=== PATIENT | male | born 1950 | race Caucasian/White ===

== ENCOUNTER → 2018-07-07 | Outpatient (CLI) | payer MEDICARE ==
[~2018-07-07] MED LIST: ALBU50IV IV; ASPI-715 PO; CALC500T6 PO; CHOL10005 PO; GLUC1TAB13 PO; IBUP800T37 PO; LIS10 PO; LISINOPRI BU; LOR5 PO; MULT-1335 PO
--- NOTE | 2018-07-07 19:07 | RADIOLOGY IMAGING REPORT ---
FACILITY: [facility] PATIENT NAME: Leigh Blanton : 1950 MR: [id number] V: [id number] EXAM DATE: ORDERING PHYSICIAN: JAIME MOORE TECHNOLOGIST: Location: [facility] [place] Patient: Leigh Blanton : 1950 Visit/Account:[id number] Date of Sevice: 07/07/2018 MRI left knee Indication: Left knee pain Comparison: None available. Technique: Multiplanar, multisequence MRI examination is performed of the left knee without contrast. Findings: Medial compartment: There is complex macerated undersurface tearing of the posterior horn and the body of the medial meni scus with mild medial extrusion at the medial joint line. There is chondral thinning and partial-thickness chondral loss mid weightbearing medial femoral condy le and medial tibial plateau cartilage with prominent subchondral edema within the medial tibial plat eau noted. Lateral compartment: There is partial-thickness fissuring and irregularity mid weightbearing lateral tibial plateau cartil age. No discrete tear lateral meniscus. Patellofemoral compartment: There is moderate partial-thickness chondral loss of the median ridge patella cartilage. Bones and marrow: No acute or aggressive osseous abnormality. Ligaments and tendons: ACL is intact. Diffuse increased signal within the ACL fibers likely relates to mucoid degeneration. The extensor mechanism is intact. The MCL is intact. The iliotibial band, biceps femoris tendon, and the fibular collateral ligament is intact Moderate tendinopathy proximal popliteus tendon noted. Soft tissues: There is a [id number] sized suprapatellar joint effusion. Mild prepatellar edema. IMPRESSION: 1. Extensive macerated medial meniscal tearing as above. 2. Chondral loss medial compartment cartilage with prominent subchondral edema within the medial tibi al plateau. 3. Suprapatellar joint effusion. 4. Moderate tendinopathy proximal popliteus. Report Dictated By: Antonio Kaufman MD at 07/07/2018 7:00 PM Report E-Signed By: Antonio Kaufman MD at 07/07/2018 7:03 PM WSN:[id number]
== END ==
LOC: MRI 05:00
PROVIDERS: ATTEND Family Medicine
DX: S83.8X2A Sprain of other specified parts of left knee, initial encounter (principal); M25.462 Effusion, left knee

== ENCOUNTER → 2019-04-03 | Outpatient (CLI) | payer MEDICARE ==
[~2019-04-03] MED LIST changes: +BARIUM SULFATE 176 GM BTL PO ONE; +BARIUM SULFATE 340 GM POWD ONE
--- NOTE | 2019-04-03 17:49 | RADIOLOGY IMAGING REPORT ---
FACILITY: [facility] PATIENT NAME: Leigh Blanton : 1950 MR: [id number] V: [id number] EXAM DATE: ORDERING PHYSICIAN: JAIME MOORE TECHNOLOGIST: [place] [facility] [place] : 1950 Visit/Account:[id number] Date of Sevice: 04/03/2019 Exam type: XR UPPER GI SERIES W/O KUB History: GERD with hiccups Comparison: None. Findings: Double contrast upper GI series was performed with thick and thin barium and air contrast there is a prominent impression along the posterior wall the cervical esophagus likely related to the cricophary ngeus muscle. There is a small hiatal hernia with a Schatzki ring. No significant narrowing is iden tified in the distal esophagus. A small amount of gastroesophageal reflux was observed. There is a small diverticulum projecting from the second portion of the duodenum. Remainder the stomach in duod enum appeared unremarkable.. The dose area product was 1646.98 micro-Hernandes per meter squared IMPRESSION: 1. Small hiatal hernia with a small Schatzki ring although no significant narrowing in the distal es ophagus A small amount of gastroesophageal reflux was observed There is an impression along the posterior wall of the distal esophagus likely related to the cricoph aryngeus muscle Report Dictated By: Renetta Kerns MD at 04/03/2019 5:43 PM Report E-Signed By: Renetta Kerns MD at 04/03/2019 5:46 PM WSN:[email or web address]
== END ==
LOC: RAD 00:28
PROVIDERS: ATTEND Family Medicine
DX: K44.9 Diaphragmatic hernia without obstruction or gangrene (principal); K21.9 Gastro-esophageal reflux disease without esophagitis
CPT/HCPCS: 74240

== ENCOUNTER 2019-05-09 00:22 | Day surgery (SDC) | payer MEDICARE ==
[~2019-05-09] VITALS: Ht 170.2 cm; Wt 82.1 kg
[~2019-05-09 00:22] MED LIST changes: -BARIUM SULFATE 176 GM BTL PO ONE; -BARIUM SULFATE 340 GM POWD ONE; +RANI150C17 PO
[2019-05-09] MEDS ORDERED: PROPOFOL EMUL(*) 10MG/ML 20 ML 20 ML ONE (07:12)
[2019-05-09] MEDS ORDERED: LIDOCAINE/SOD BICARB 8.4% SYR ID ONE (10:25)
[2019-05-09] MEDS ORDERED: NORMOSOL R SOLN(*) 1000 ML BAG 1,000 ML IV PRN (10:25)
[2019-05-09 10:29] VITALS: BP 157/98
[2019-05-09 12:04] VITALS: BP 144/90
--- NOTE | 2019-05-09 12:11 | Short(Outpt) Discharge Summary ---
Discharge Summary Reason for Hosp/Final Diag: (1) Dysphagia Status: Chronic Hospital Course & Plan: EGD completed without problems. Schatzki's ring observed but it was wide open so no dilation performed. Pt's symptoms have also resolved since starting ranitidine. (2) Regurgitation of food Status: Chronic Departure Discharge to: Home, Self Care Discharge Instructions Home Meds Active Scripts Ranitidine Hcl (RANITIDINE HCL) 150 Mg Capsule, 1 CAP PO BID, #90 CAPSULE 6 Refills Prov:MARK RICHEY MD 04/10/19 Reported Medications Glucosamine Hcl/Chondr Weinstein A Na (OSTEO BI-FLEX CAPLET) 1 Each Tablet, 1 EACH PO QDAY 02/10/17 Calcium Carbonate (CALCIUM) 500 Mg Tablet, 500 MG PO QDAY 02/10/17 Cholecalciferol (Vitamin D3) (VITAMIN D3) 1,000 Unit Tablet, 1000 UNIT PO QDAY, TAB 02/10/17 Multivitamin With Minerals (MULTIPLE VITAMIN) 1 Each Tablet, 2 EACH PO QDAY, TAB 02/10/17 Diet: Regular Activity: As Tolerated Special Instructions: Your upper endoscopy was completed without problems. All of your tissues look healthy. No inflammation or ulcers. No strictures. I did NOT dilate your esophagus because there was nothing to dilate. You do not have Dugan's esophagus. I recommend that you continue to take the ranitidine (Zantac) twice each day and call my office for an appointment if you have any concerns going forward. Problem Qualifiers (1) Dysphagia: Dysphagia type: esophageal phase Qualified Codes: R13.10 - Dysphagia, unspecified MARK RICHEY MD May 09, 2019 12:11
[2019-05-09 12:15] VITALS: BP 144/90
[2019-05-09 12:44] VITALS: BP 165/101
[2019-05-09 12:46] VITALS: BP 171/107
== END 2019-05-09 13:09 | disposition home or self-care (01) ==
LOC: OR 00:22
PROVIDERS: ATTEND Surgery
DX: K22.2 Esophageal obstruction (principal)
CPT/HCPCS: 43235; J2704